=== PATIENT | female | born 1990 | race Two or more races ===

== ENCOUNTER 2018-07-01 23:35 | Emergency (ER) | payer OTHER ==
[~2018-07-01] VITALS: Ht 175.3 cm; Wt 81.6 kg
[2018-07-02] MEDS ORDERED: ONDANSETRON HCL 4 MG/2 ML VIAL IV ONE (00:15)
[2018-07-02] MEDS ORDERED: MORPHINE SULFATE 4 MG/ML SYR/VIAL IV ONE (00:15)
[2018-07-02] MEDS ORDERED: SODIUM CHLORIDE 0.9% 1,000 ML IV ONE ×2 (00:15→01:15)
[2018-07-02 02:00] LABS: Basophils # (auto) 0 uL; Basophils % (auto) 0.3 % (0.0-2.0); Eosinophils # (auto) 0 uL; Eosinophils % (auto) 0.3 % (0.0-7.0); Hematocrit 36.8 % (36.0-46.0); Hemoglobin 11.8 g/dL (12.2-16.2); Lymphocytes # (auto) 1.2 uL; Lymphocytes % (auto) 13.9 % (10.0-50.0); Mean Corpuscular Hemoglobin 26.4 pg (28.0-32.0); Mean Corpuscular Volume 82.4 fL (80.0-100.0); Monocytes # (auto) 0.5 uL; Monocytes % (auto) 5.4 % (0.0-12.0); Neutrophils % (auto) 80.1 % (37.0-80.0); Nucleated Red Blood Cells % 0.1 %; Platelet Count (auto) 177 10^3/uL (140-450); Red Blood Cells 4.47 10^6/uL (4.0-5.20); White Blood Cell 8.7 10^3/uL (4.4-10.8)
[2018-07-02] MEDS ORDERED: MORPHINE SULF INJ 2 MG/ML SYRINGE 1ML IV ONE (02:00)
[2018-07-02 02:01] LABS: Red Cell Distribution Width 24.8 % (11.8-14.3)
[2018-07-02 02:12] LABS: Potassium 3.7 mmol/L (3.5-5.1)
[2018-07-02 02:14] LABS: Partial Thromboplastin Time 25.8 sec (23.78-33.04); Prothrombin Time 10.7 sec (9.27-12.13)
[2018-07-02 02:17] LABS: Albumin 3.4 g/dL (3.4-5.0); Calcium 8.3 mg/dL (8.5-10.1)
[2018-07-02 02:19] LABS: BUN/Creatinine Ratio 27.5
[2018-07-02 02:22] LABS: Bilirubin, Total 0.3 mg/dL (0.2-1.0); Total Protein 7.2 g/dL (6.4-8.2)
[2018-07-02] MEDS ORDERED: IOHEXOL 300 MG/ML 100ML BOTTLE IJ ONE (02:55)
[2018-07-02 07:53] LABS: Urine Bacteria NONE SEEN /hpf (None Seen); Urine Blood Negative /uL (Negative); Urine Specific Gravity 1.023 (1.001-1.035); Urine WBC 1 /hpf (0 - 5)
[2018-07-02] MEDS ORDERED: cefTRIAXone 1GM/50ML D5W 50 ML IV ONE (10:45)
[2018-07-02 12:11] VITALS: BP 100/76
== END 2018-07-02 13:27 | disposition home or self-care (01) ==
LOC: ER 23:39
DX: K82.0 Obstruction of gallbladder (principal); R79.89 Other specified abnormal findings of blood chemistry; Z90.89 Acquired absence of other organs
CPT/HCPCS: 36415; 74177; 76705; 80053; 81001; 81025; 82150; 83605; 83690; 84702; 85025; 85610; 85730; 94761; 96361; 96365; 96375; 96376; 99284; J0696; J2270; J2405; J7030; Q9967